=== PATIENT | male | born 1970 | race Caucasian/White ===

== ENCOUNTER 2019-01-17 05:18 | Emergency (ER) | payer BC, OTHER ==
[~2019-01-17] VITALS: Ht 167.6 cm; Wt 78.6 kg
[~2019-01-17 05:18] MED LIST: ASPI81TA83; DEPA500T2; FLAX OIL; PLAV75TA2; [UNRECOGNIZED DRUG - OTHER]
[2019-01-17] MEDS ORDERED: ACETAMINOPHEN 500 MG TAB PO ONE (06:30)
[2019-01-17] MEDS ORDERED: CYCLOBENZAPRINE 10 MG TAB PO ONE (06:30)
[2019-01-17] MEDS ORDERED: KETOROLAC 60 MG/2 ML VIAL (J1885) IM ONE (06:30)
--- NOTE | 2019-01-17 07:32 | REP ---
Clinical: Left-sided sciatica. Technique: AP, lateral, bilateral oblique and coned-down views of the lumbosacral spine. Findings: Alignment and lordosis maintained. No acute fracture / compression injury or subluxation. No significant degenerative changes are appreciated. Disc spaces are maintained. Impression: Age-appropriate lumbosacral spine radiographs. Electronically Signed by Prashanth Bethea MD 01/17/2019 07:24 A
[2019-01-17] MEDS ORDERED: predniSONE 20 MG TAB PO ONE (07:45)
[2019-01-17] MEDS ORDERED: ALBUTEROL 90 MCG/ACT 8GM HFA INHALER INH ONE (07:45)
[2019-01-17] MEDS ORDERED: CETIRIZINE (ZyrTEC) 10 MG TAB PO ONE (07:45)
[2019-01-17] MEDS ORDERED: CYCL10TA PO (07:56)
[2019-01-17] MEDS ORDERED: KETO10TAB PO (07:56)
[2019-01-17 08:14] VITALS: BP 136/66
[2019-01-17] MEDS ORDERED: FLUTICASONE PROP 0.05% NASAL SPRAY 16 GM (FLONASE) NARES SCH (09:00)
== END 2019-01-17 08:15 | disposition home or self-care (01) ==
LOC: M ED 05:18
DX: M54.32 Sciatica, left side (principal); M62.830 Muscle spasm of back; Z79.899 Other long term (current) drug therapy
CPT/HCPCS: 72110; 96372; 99283; J1885

== ENCOUNTER → 2020-01-18 | Outpatient (CLI) | payer BC ==
[~2020-01-18] MED LIST changes: +CYCL-707 PO; +KETO10TAB PO
== END ==
LOC: M LABSMTC 08:13
PROVIDERS: ATTEND Anesthesiology
DX: Z01.812 Encounter for preprocedural laboratory examination (principal); Z20.828 Contact with and (suspected) exposure to other viral communicable diseases
CPT/HCPCS: C9803; U0003

== ENCOUNTER 2020-01-23 08:56 | Day surgery (SDC) | payer BC ==
[~2020-01-23] VITALS: Ht 167.6 cm; Wt 79.8 kg
[~2020-01-23 08:56] MED LIST changes: +NS 1,000 ML IV ONE
--- NOTE | 2020-01-23 11:41 | ROOR ---
Patient Name: Haseeb Rand Procedure Date: 01/23/2020 11:19 AM Date of : 1970 Age: 49 Room: [facility] Gender: Male Note Status: Finalized Procedure: Colonoscopy Indications: Colon cancer screening in patient at increased risk: Family history of colorectal cancer in multiple 2nd degree relatives Providers: Ck GÓMEZ MD Referring MD: OSIEL KOHLER MD Requesting Provider: Medicines: Monitored Anesthesia Care Complications: No immediate complications. Procedure: Pre-Anesthesia Assessment: - The heart rate, respiratory rate, oxygen saturations, blood pressure, adequacy of pulmonary ventilation, and response to care were monitored throughout the procedure. The Colonoscope was introduced through the anus and advanced to the cecum, identified by appendiceal orifice and ileocecal valve. The colonoscopy was performed without difficulty. The patient tolerated the procedure well. The quality of the bowel preparation was adequate. Findings: The perianal and digital rectal examinations were normal. A 5 mm polyp was found in the cecum. The polyp was sessile. The polyp was removed with a cold snare. Resection and retrieval were complete. Small Internal Hemorrhoids. The exam was otherwise without abnormality on direct and retroflexion views. Impression: - One 5 mm polyp in the cecum, removed with a cold snare. Resected and retrieved. - Small Internal Hemorrhoids. - The examination was otherwise normal on direct and retroflexion views. Recommendation: - Repeat colonoscopy in 3 - 5 years for surveillance. - Await pathology results. - Telephone endoscopist for pathology results in 2 weeks. Ck Gómez MD Ck GÓMEZ MD 01/23/2020 11:40:47 AM Electronically signed by Ck GÓMEZ MD Number of Addenda: 0 Note Initiated On: 01/23/2020 11:19 AM Estimated Blood Loss: Estimated blood loss: none.
[2020-01-23] MEDS ORDERED: LIDOCAINE 2% 100MG/5ML SDV (FOR ANES.) As Ordered ONE (11:47)
[2020-01-23] MEDS ORDERED: propofoL 200 MG/20 ML VIAL As Ordered ONE (11:47)
[2020-01-23 11:54] VITALS: BP 128/85
== END 2020-01-23 11:55 | disposition home or self-care (01) ==
LOC: M OPP 08:56
PROVIDERS: ATTEND Internal Medicine Gastroenterology
DX: Z12.11 Encounter for screening for malignant neoplasm of colon (principal); Z80.0 Family history of malignant neoplasm of digestive organs; K63.5 Polyp of colon; K64.8 Other hemorrhoids; Z87.891 Personal history of nicotine dependence; Z86.73 Personal history of transient ischemic attack (TIA), and cerebral infarction without residual deficits; Z80.3 Family history of malignant neoplasm of breast; Z80.41 Family history of malignant neoplasm of ovary

== ENCOUNTER 2020-12-14 17:04 | Observation (INO) | payer BC ==
[~2020-12-14] VITALS: Ht 167.6 cm; Wt 83.6 kg
[~2020-12-14 17:04] MED LIST changes: -NS 1,000 ML IV ONE
[2020-12-14] MEDS ORDERED: AMOX875T2 (17:29)
[2020-12-14] MEDS ORDERED: ISOVUE-370 76% 100ML VIAL As Ordered ONE (17:41)
[2020-12-14 17:46] LABS: BASO # 0.1 10^3/uL (0.0-0.2); BASO % 0.8 % (0.0-1.0); EOS # 0.1 10^3/uL (0.0-0.5); EOS % 0.8 % (0.0-3.0); HEMATOCRIT 42.4 % (42.0-52.0); HEMOGLOBIN 14.7 g/dl (13.5-17.5); LYMPH # 1.9 10^3/uL (1.5-5.0); LYMPH % 31.7 % (24.0-44.0); MEAN CORPUSCULAR HEMOGLOBIN 31.6 pg (27.0-33.0); MEAN CORPUSCULAR HGB CONC 34.7 g/dl (32.0-36.5); MEAN CORPUSCULAR VOLUME 91.2 fl (80.0-96.0); MONO # 0.7 10^3/uL (0.0-0.8); MONO % 12.1 % (2.0-8.0); NEUTROPHILS # 3.2 10^3/uL (1.5-8.5); NEUTROPHILS % 54.4 % (36.0-66.0); PLATELET COUNT, AUTOMATED 232 10^3/uL (150-450); RED BLOOD COUNT 4.65 10^6/uL (4.30-6.10); WHITE BLOOD COUNT 5.9 10^3/uL (4.0-10.0)
[2020-12-14 18:06] LABS: BLOOD UREA NITROGEN 17 MG/DL (7-18); CALCIUM LEVEL 8.7 MG/DL (8.5-10.1); CARBON DIOXIDE LEVEL 26 MEQ/L (21-32); CHLORIDE LEVEL 107 MEQ/L (98-107); CK-MB VALUE MASS 2.4 NG/ML (<3.6); CPK CREATINE PHOSPHOKINASE 173 U/L (39-308); CREATININE FOR GFR 0.95 MG/DL (0.70-1.30); GLOMERULAR FILTRATION RATE > 60.0 (>56); GLUCOSE, FASTING 110 MG/DL (70-100); MB/CK RELATIVE INDEX 1.39 (< OR =4); POTASSIUM SERUM 4.1 MEQ/L (3.5-5.1); SODIUM LEVEL 139 MEQ/L (136-145); TROPONIN I < 0.02 NG/ML (< 0.10)
--- NOTE | 2020-12-14 18:24 | REP ---
INDICATION: CVA. COMPARISON: None. FINDINGS: The technique utilized in obtaining the radiograph has magnified the cardiac silhouette and accentuated the interstitial markings. The superior mediastinal structures are midline. The cardiac silhouette is unremarkable in size, shape, and position. The diaphragmatic surfaces of the lungs are regular, and the costophrenic angles are clear. The pulmonary marshall are clear. The imaged osseous structures are intact. IMPRESSION: There is no acute cardiopulmonary disease. <Electronically signed by Ryan Gardiner > 12/14/20 1612
--- NOTE | 2020-12-14 18:42 | REPVR ---
PROCEDURE INFORMATION: Exam: CT Angiography Head With Contrast, Arteriography Exam date and time: 12/14/2020 5:49 PM Age: 50 years old Clinical indication: Numbness; Additional info: Left sided facial numbness TECHNIQUE: Imaging protocol: Computed tomography angiography of the head with contrast. Exam focused on the arteries. 3D rendering (Not supervised by radiologist): MIP and/or 3D reconstructed images were created by the technologist. Radiation optimization: All CT scans at this facility use at least one of these dose optimization techniques: automated exposure control; mA and/or kV adjustment per patient size (includes targeted exams where dose is matched to clinical indication); or iterative reconstruction. Contrast material: ISOVUE 370; Contrast volume: 75 ml; Contrast route: INTRAVENOUS (IV); COMPARISON: No relevant prior studies available. FINDINGS: ANTERIOR CIRCULATION: Right internal carotid artery: Unremarkable. Intracranial segment is patent with no significant stenosis. No aneurysm. Right middle cerebral artery: Unremarkable. No occlusion or significant stenosis. No aneurysm. Right anterior cerebral artery: Unremarkable. No occlusion or significant stenosis. No aneurysm. Left internal carotid artery: Unremarkable. Intracranial segment is patent with no significant stenosis. No aneurysm. Left middle cerebral artery: Unremarkable. No occlusion or significant stenosis. No aneurysm. Left anterior cerebral artery: Unremarkable. No occlusion or significant stenosis. No aneurysm. POSTERIOR CIRCULATION: Right vertebral artery: Unremarkable. No occlusion or significant stenosis. No aneurysm. Left vertebral artery: Unremarkable. No occlusion or significant stenosis. No aneurysm. Basilar artery: Unremarkable. No occlusion or significant stenosis. No aneurysm. Right posterior cerebral artery: Unremarkable. No occlusion or significant stenosis. No aneurysm. Left posterior cerebral artery: Unremarkable. No occlusion or significant stenosis. No aneurysm. Brain: No definite mass, mass effect, or midline shift. Cerebral ventricles: No ventriculomegaly. Bones/joints: Unremarkable. No acute fracture. Soft tissues: Unremarkable. IMPRESSION: No hemodynamically significant stenosis or large vessel occlusion. Electronically signed by: Gilbert Skaggs On 12/14/2020 18:42:04 PM
--- NOTE | 2020-12-14 18:42 | REPVR ---
PROCEDURE INFORMATION: Exam: CT Head Without Contrast Exam date and time: 12/14/2020 5:49 PM Age: 50 years old Clinical indication: Other: CVA; Additional info: CVA - nursing interventions must not delay CT TECHNIQUE: Imaging protocol: Computed tomography of the head without contrast. Radiation optimization: All CT scans at this facility use at least one of these dose optimization techniques: automated exposure control; mA and/or kV adjustment per patient size (includes targeted exams where dose is matched to clinical indication); or iterative reconstruction. COMPARISON: No relevant prior studies available. FINDINGS: Brain: Normal. No hemorrhage. Unremarkable white matter. No mass effect. Cerebral ventricles: No ventriculomegaly. Paranasal sinuses: Visualized sinuses are unremarkable. No fluid levels. Mastoid air cells: Visualized mastoid air cells are well aerated. Bones/joints: Unremarkable. No acute fracture. Soft tissues: Unremarkable. IMPRESSION: No acute intracranial abnormality. Electronically signed by: Gilbert Skaggs On 12/14/2020 18:42:15 PM
[2020-12-14 18:43] LABS: INR 0.97; PROTHROMBIN TIME 13.3 SECONDS (12.7-14.5)
--- NOTE | 2020-12-14 18:43 | REPVR ---
PROCEDURE INFORMATION: Exam: CT Angiography Neck With Contrast Exam date and time: 12/14/2020 5:49 PM Age: 50 years old Clinical indication: Numbness; Additional info: Left sided facial numbness TECHNIQUE: Imaging protocol: Computed tomography angiography of the neck with contrast. 3D rendering (Not supervised by radiologist): MIP and/or 3D reconstructed images were created by the technologist. Radiation optimization: All CT scans at this facility use at least one of these dose optimization techniques: automated exposure control; mA and/or kV adjustment per patient size (includes targeted exams where dose is matched to clinical indication); or iterative reconstruction. Contrast material: ISOVUE 370; Contrast volume: 75 ml; Contrast route: INTRAVENOUS (IV); COMPARISON: No relevant prior studies available. FINDINGS: Right common carotid artery: No stenosis. No dissection or occlusion. Right internal carotid artery: Minimal calcification at the proximal right cervical ICA without stenosis. Right external carotid artery: No occlusion or stenosis of the origin. Left common carotid artery: No stenosis. No dissection or occlusion. Left internal carotid artery: No stenosis of the extracranial segment. No dissection or occlusion. Left external carotid artery: No occlusion or stenosis of the origin. Right vertebral artery: No stenosis. No dissection or occlusion. Left vertebral artery: Moderate stenosis at the origin of the left vertebral artery. Soft tissues: Normal. No significant soft tissue swelling. Bones/joints: No acute fracture. IMPRESSION: 1. Moderate stenosis involving the origin of the left vertebral artery. 2. No significant stenosis involving either internal carotid artery. REFERENCES: NASCET CRITERIA. The degree of internal carotid artery stenosis is based on NASCET criteria. Normal is no stenosis. Mild is less than 50% stenosis. Moderate is 50-69% stenosis. Severe is 70% to 99% stenosis. Total occlusion is no detectable patent lumen. Electronically signed by: Gilbert Skaggs On 12/14/2020 18:42:29 PM
[2020-12-14 18:44] LABS: PARTIAL THROMBOPLASTIN TIME 27.1 SECONDS (25.9-37.0)
[2020-12-14] MEDS ORDERED: hydrALAZINE 20MG/ML 1ML VIAL (J0360 PER 20MG) IV ONE (19:10)
[2020-12-14] MEDS ORDERED: ASPIRIN 325 MG TAB PO ONE (19:10)
[2020-12-14 19:33] VITALS: BP 165/103
[2020-12-14] MEDS ORDERED: MOM 30ML SUSPENSION UDC PO PRN (19:35)
[2020-12-14] MEDS ORDERED: ACETAMINOPHEN TAB 650MG DOSE (2X325MG) PO PRN (19:35)
[2020-12-14] MEDS ORDERED: MAALOX 30 ML SUSP *UDC PO PRN (19:35)
[2020-12-14] MEDS ORDERED: **hydrALAZINE HCL** 25 MG TAB PO PRN (19:35)
--- NOTE | 2020-12-14 19:45 | HPEPDOC ---
[facility] Medical History & Physical Date of Admission Dec 14, 2020 Date of Service: Dec 14, 2020 Primary Care Physician: Archie Puri MD Attending Physician: ESTHER PATINO MD History and Physical TIME OF SERVICE:820pm CHIEF COMPLAINT: dizziness HISTORY OF PRESENT ILLNESS: is a 50 yr old who presented w c/o headaches for 3 days that are atypical of his chronic migraines. Today at about 3:50PM he had 2 dizzy spells back to back along with left lower facial numbness and left tongue numbness. He denies having a history of HTN but he decided to check his BP was surprised that it was 158/88 when it is usually about 120/86. He was concerned about this constellation of symptoms so he decided to come to the ER for evaluation. He denied having blurry vision, n/v falling or dropping any objects. Per Roland Castro the NIH stroke score was 0. The patients acute elevation in blood pressure (198/121) was managed with Lisinopril and Hydralazine BP; he discussed the case with who will see the patient in the morning. REVIEW OF SYSTEMS: 10-point review of systems negative except as listed in HPI PAST MEDICAL/ SURGICAL HISTORY: Chronic Migraines, TIA s/p PFO repair at [facility], Knee surgery, Lasik surgery SOCIAL HISTORY: He doesnt smoke, he drinks alcohol occasionally and doesnt use recreational drugs. FAMILY HISTORY: Cancer on the maternal side of his family. Parkinsons, CAD/[place] on the paternal side of his family. ALLERGIES: Please see below. HOME MEDICATIONS: Please see below. PHYSICAL EXAMINATION: Vital Signs Date Time Temp Pulse Resp B/P (MAP) Pulse Ox O2 Delivery O2 Flow Rate FiO2 12/14/20 17:04 98.3 51 20 175/103 (127) 96 Room Air GENERAL APPEARANCE: well-nourished and developed HEENT: EOMI / no scleral icterus or conjunctival injection CARDIOVASCULAR: RRR/NMRG LUNGS: CTAB on RA MUSCULOSKELETAL: NCAT / EDIE x 4 INTEGUMENT: slightly flushed NEUROLOGICAL: CN 2-12 intact, tongue & uvula are midline, face symmetrical, he has decreased sensation at the left lower face otherwise no asymmetry with regards to sensation on the rest of his face, his arms or legs /strength 5/5 PSYCHIATRIC: A&O x3 /able to understand and follow all commands LABORATORY DATA: IMAGING: Chest xray IMPRESSION: There is no acute cardiopulmonary disease. CT head IMPRESSION: No acute intracranial abnormality. CTA head IMPRESSION: No hemodynamically significant stenosis or large vessel occlusion. CTA neck IMPRESSION: 1. Moderate stenosis involving the origin of the left vertebral artery. 2. No significant stenosis involving either internal carotid artery. REFERENCES: NASCET CRITERIA. The degree of internal carotid artery stenosis is based on NASCET criteria. Normal is no stenosis. Mild is less than 50% stenosis. Moderate is 50-69% stenosis. Severe is 70% to 99% stenosis. Total occlusion is no detectable patent lumen. MICROBIOLOGY: respiratory panel is neg ASSESSMENT: is a 50 yr old w a hx of PFO closure after TIA & migranes who presented w c/o atypical ACEVEDO, dizziness, and paresthesias suspicious for TIA/CVA. PLAN: 1 Possible TIA vs CVA TIA Prognosis: Risk of Stroke by 90 Days After Presentation to determine risk of CVA within 90-day risk of TIA presentation is 2 = 7% estimated risk of stroke 90 days after presentation ABCD2 Score for risk of CVA after TIA IS 3 which is low risk. He is not likely a candidate for ASA & Plavix combo (based on the results of the PO[facility] trails) but the day time team can confirm this with in the morning Plan: admit to Medical floor under observation status (Hospital admission is recommended for all patients with TIAs and ABCD2 Scores of 3 or greater to to expedite diagnostic testing and stroke subtyping) / telemetry / f/u MRI of brain pending discussion w the Radiology department about his PFO closure (I lef t a copy of the card in his chart) / f/u Echo w bubble study / f/u lipid panel and A1C / ASA 325 mg (LA or PO) / permissive HTN for the next 24 H w with target blood pressure less than 220/120 with PRN hydralazine / the patient can f/u w PCP to discuss lifestyle management: diet (ie high in fruits, vegies and fiber and < 2G salt) , weight control strategies (aim for BMI between 18.5 to 25) 2 HTN Crisis Possible cause of his ACEVEDO Plan: bed rest for tonight/ hydralazine PRN / the day time team can start a diuretic, CCB, ACEI or ARB (which are all aceptable first line meds for HTN per based on the results of the ALLHAT trail) in the morning / low salt diet 3 Moderate Left Vertebral Artery Stenosis Plan: the day time team can f/u w to discuss whether we should consult (Vascular) 4 Chronic Bradycardia Plan: telemetry 5 Dog bite Plan: c/w Augmentin DVT px w Lovenox Dispo: home after less than 2 midnights stay Home Medications Scheduled Amoxicillin/Potassium Clav (Augmentin 875-125 Tablet) 1 Each Tablet, 875 MG PO BID Krill Oil (Krill Oil) 500 Mg Capsule, 500 MG PO DAILY Magnesium Oxide (Magnesium Oxide) 250 Mg Tablet, 250 MG PO DAILY Multivitamins (Thera M Plus Tablet) 1 Each Tablet, 1 TAB PO DAILY Vits A,C,E/Lutein/Minerals (Ocuvite with Lutein Tablet) 1 Each Tablet, 1 TAB PO DAILY Allergies Coded Allergies: No Known Allergies (Unverified , 01/17/19) A-FIB/CHADSVASC A-FIB History Current/History of A-Fib/PAF?: No Current PO Anticoag Therapy: No ESTHER PATINO MD Dec 14, 2020 19:45
[2020-12-14] MEDS ORDERED: PILL CUTTER 1 EACH XX PRN (19:55)
[2020-12-14] MEDS ORDERED: OCUVTAB PO (20:50)
[2020-12-14] MEDS ORDERED: HOME MED LIST COMPLETE! XX SCH (20:50)
[2020-12-14] MEDS ORDERED: AUGM875T28 PO (20:50)
[2020-12-14] MEDS ORDERED: VITMTA PO (20:50)
[2020-12-14] MEDS ORDERED: RA K500C PO (20:50)
[2020-12-14] MEDS ORDERED: MAGN250T11 PO (20:50)
[2020-12-14 21:11] LABS: RSV AMPLIFICATION NEGATIVE (NEGATIVE)
[2020-12-14 22:00] VITALS: BP 130/84
[2020-12-14 22:46] LABS: HEMOGLOBIN A1c 5.1 %
[2020-12-14] MEDS: AUGMENTIN 875 MG TAB PO SCH (22:58)
[2020-12-14 23:01] LABS: CHOLESTEROL LEVEL 233 MG/DL (<200); CHOLESTEROL RISK RATIO 4.314 (<5); HDL CHOLESTEROL 54 MG/DL (>40); LDL CHOLESTEROL 149 MG/DL (<100); NON-HDL-C 179 MG/DL; TRIGLYCERIDES LEVEL 152 MG/DL (<150); TROPONIN I < 0.02 NG/ML (< 0.10)
[2020-12-15] VITALS: BP 130/84
[2020-12-15 04:00] VITALS: BP 98/57
[2020-12-15] MEDS ORDERED: NS 1,000 ML IV SCH (04:40)
[2020-12-15 05:29] LABS: HEMATOCRIT 41.7 % (42.0-52.0); HEMOGLOBIN 14.4 g/dl (13.5-17.5); MEAN CORPUSCULAR HEMOGLOBIN 31.6 pg (27.0-33.0); MEAN CORPUSCULAR HGB CONC 34.5 g/dl (32.0-36.5); MEAN CORPUSCULAR VOLUME 91.6 fl (80.0-96.0); PLATELET COUNT, AUTOMATED 215 10^3/uL (150-450); RED BLOOD COUNT 4.55 10^6/uL (4.30-6.10); WHITE BLOOD COUNT 5.1 10^3/uL (4.0-10.0)
[2020-12-15 06:03] LABS: BLOOD UREA NITROGEN 14 MG/DL (7-18); CALCIUM LEVEL 8.4 MG/DL (8.5-10.1); CARBON DIOXIDE LEVEL 27 MEQ/L (21-32); CHLORIDE LEVEL 108 MEQ/L (98-107); CHOLESTEROL LEVEL 215 MG/DL (<200); CHOLESTEROL RISK RATIO 4.777 (<5); CREATININE FOR GFR 0.91 MG/DL (0.70-1.30); GLOMERULAR FILTRATION RATE > 60.0 (>56); GLUCOSE, FASTING 101 MG/DL (70-100); HDL CHOLESTEROL 45 MG/DL (>40); LDL CHOLESTEROL 133 MG/DL (<100); NON-HDL-C 170 MG/DL; SODIUM LEVEL 140 MEQ/L (136-145); TRIGLYCERIDES LEVEL 184 MG/DL (<150)
[2020-12-15 08:12] VITALS: BP 107/70
[2020-12-15] MEDS: OCUVITE 1 TAB PO SCH (08:13)
[2020-12-15] MEDS: ENOXAPARIN 40MG/0.4ML SYRINGE (J1650 PER 10MG) SC SCH (08:13)
[2020-12-15] MEDS: AUGMENTIN 875 MG TAB PO SCH ×2 (08:14→20:20)
[2020-12-15] MEDS: ASPIRIN 81 MG CHEW TABLET PO SCH (08:14)
[2020-12-15] MEDS ORDERED: CHLORTHALIDONE 12.5MG PER 1/2 TABLET PO SCH (09:00)
--- NOTE | 2020-12-15 09:36 | IPNPDOC ---
Text Note Date of Service The patient was seen on 12/15/20. Subjective: 50 year old male presented to the ER with 3 day headache and facial numbness was determined to have hypertensive urgency and possible TIA. On exam today patient was supine and appeared in no distress. Patient says that his headache was a 2/10 today, yesterday when he came in it was a 4/10. Patient says that he feels fine right now. Review of systems: headache is 2/10 - patient suffers from chronic migraines, Denies N/V, chest pain, palpitations, SOB, dyspnea, ABD pain, urinary pain, tin gling, and numbness. Physical exam: General: No distress, no fever or chills Psych: Pt is alert and oriented *3 HEENT: No visible thyroid or lymph node enlargement Heart: Heart rate is slow. Lungs: BL equal breath sounds on auscultation ABD: No tenderness or rigidity to palpation. Bowel sounds are present and high frequency on auscultation Extremities: No edema BL. Pedal and posterior tibial pulses 2/4 BL. Assessment: 50 year old male with past medical history of chronic migraines, previous TIA in 2008 (PFO correction), knee surgery, and Lasix surgery. Patient came to the hospital with headaches that lasted 3 days and numbness of the face. Patient was found to be hypertensive with the highest value recorded as 198/121. Patient's presenting symptoms were concerning for a TIA. Patient was found with elevated lipid panels on labs. Goals of current medical admission are to determine future stroke risk and start patient on management for chronic hypertension. New Imaging: - Echocardiogram: Results pending - MRI: Results pending Plan: 1. TIA/ CVE risk reduction - Patient symptoms on admission were headache that was not consistent with usual migraine pain and numbness on the left side of the face consistent with trigeminal nerve distribution. - ABCD2 scoring is inconclusive because TIA vs. other cause cannot be determined - Pt will be started on 81 mg of aspirin daily. - Patient has elevated lipids - TG (184), Cholesterol (215), and LDL (133) - psychologist counseling patient on diet and start patient on Avastatin therapy (40mg) - ASCVD risk score. 2. Hypertensive crisis -Patient was admitted he had a BP of 198/121. Patient does not take any Medications for his BP regularly. - During hospital stay Patient's BP has been well controlled - 130/80s - hypotensive overnight. Currently treated with Hydralazine Q6 PO. - Will start the patient on amlodipine for management of hypertension. 3. Left artery stenosis - On CTA of the neck moderate stenosis of the Left vertebral artery was found. No current indication to treat. 4. Dog bite last Sunday (12/10/20) - prescribed Augmentin for prophylatic treatment - patient should continue med for 10 day period that it was prescribed. 5. DVT prophylaxis - Lovenox. VS,Fishbone, I+O VS, Fishbone, I+O Laboratory Tests 12/14/20 17:32 12/15/20 05:09 Vital Signs Date Time Temp Pulse Resp B/P (MAP) Pulse Ox O2 Delivery O2 Flow Rate FiO2 12/15/20 04:00 97.8 57 16 98/57 (71) 97 Room Air I&O- Last 24 Hours up to 6 AM 12/15/20 05:59 Intake Total 0 ml Output Total 550 ml Balance -550 ml SANDRA PALMER S-3 Dec 15, 2020 09:36
--- NOTE | 2020-12-15 10:00 | ECGEPIP ---
[facility] - ED Test Date: 2020-12-14 Pat Name: KEYANA ARTEAGA Department: Room: - Gender: Male [employer]: LORI : 1970 Requested By: Titus Cleary Order Number: [id number] Reading MD: Elba Walker Measurements Intervals [place] Rate: 51 P: 18 WA: 176 QRS: -24 QRSD: 102 T: 4 QT: 414 QTc: 381 Interpretive Statements Sinus bradycardia Minimal voltage criteria for LVH, may be normal variant ( R in aVL ) No prior Electronically Signed on 12-15-2020 10:00:38 EDT by Elba Walker
[2020-12-15 12:00] VITALS: BP 123/59
[2020-12-15] MEDS: ATORVASTATIN 20 MG TAB PO SCH (12:18)
[2020-12-15] MEDS ORDERED: SLF 3 ML SYR IV PRN (13:40)
[2020-12-15] MEDS: SLF 3 ML SYR IV SCH ×2 (14:59→20:20)
[2020-12-15 16:00] VITALS: BP 136/92
[2020-12-15 20:00] VITALS: BP 113/70
--- NOTE | 2020-12-15 21:11 | REPVR ---
PROCEDURE INFORMATION: Exam: MR Head Without Contrast Exam date and time: 12/15/2020 8:41 PM Age: 50 years old Clinical indication: Dizziness; Additional info: Dizziness, ACEVEDO, facial paresthesia w HX of TIA TECHNIQUE: Imaging protocol: MR of the head without contrast. COMPARISON: CT Head without contrast 12/14/2020 5:44 PM FINDINGS: No abnormal restriction of diffusion to indicate acute CVA. Midline structures and cerebellar tonsillar position appear normal. Ventricles, cisterns and sulci are symmetric and normal for age. No intracranial mass, midline shift or abnormal extra-axial fluid. No acute intracranial hemorrhage or hemosiderin deposition. No abnormal white matter signal on FLAIR and T2 sequences. Optic chiasm and pituitary infundibulum appear normal. Normal vascular flow voids in major intracranial arteries and dural venous sinuses. Paranasal sinuses are normally aerated. Mastoid air cells are normally aerated. Optic globes and orbits are unremarkable. IMPRESSION: Unremarkable noncontrast MRI of the brain. Electronically signed by: Alexander Morocho On 12/15/2020 21:11:29 PM
[2020-12-16] VITALS: BP 114/60
[2020-12-16 04:00] VITALS: BP 102/56
[2020-12-16] MEDS: SLF 3 ML SYR IV SCH (06:05)
[2020-12-16 07:23] VITALS: BP 113/69
--- NOTE | 2020-12-16 07:58 | DS.PDOC ---
Discharge Summary General Date of Admission Dec 14, 2020 at 17:05 Date of Discharge 12/16/20 Discharge Summary PROCEDURES PERFORMED DURING STAY: [None]. ADMITTING DIAGNOSES: 1. TIA/ CVE. 2. Hypertensive urgency. 3. Hyperlipidemia 4. Dog bite. 5. Previeous TIA - PFO closure. 6. Chronic migraines DISCHARGE DIAGNOSES: 1. Possible TIA/ CVE. 2. Hypertensive urgency - resolved 3. Hyperlipidemia. 4. Dog bite. 5. Previous TIA - PFO closure. 6. Chronic migraines COMPLICATIONS/CHIEF COMPLAINT: Hypertensive Urgency,TIA (Transient Ischemic Attack). HISTORY OF PRESENT ILLNESS: Patient presented to the ER with 3 day headache and left sided facial numbness. BP in the ER was found to be 190+/120+. HOSPITAL COURSE: Patient was admitted to the hospital for headache that lasted 3 days and had associated facial numbness concerning for a TIA. Patients BP was elevated on admission to 190+/120+. Patient's BP was treated with Hydralazine every 6 hours and eventually normalized. Patient's blood pressure yesterday was low enough that he no longer needed any BP meds to be at a normal range. Patient was worked up for a possible TIA. No concerning findings in EKG or echo. Patient's CTA of the head and neck was normal except some moderate left vertebral artery stenosis. Patient's labs indicate that he has slight h yperlipidemia. Brain MRI and non contrast CT was negative for ischemic or hemorrhagic findings. Coagulation study were within normal limits. Patient will be prescribed aspirin on discharge and instructed to measure his BP every morning at home and see his PCP within 7 days of discharge. DISCHARGE MEDICATIONS: Please see below. ALLERGIES: Please see below. PHYSICAL EXAMINATION ON DISCHARGE: VITAL SIGNS: Please see below. GENERAL: No fever or chills HEENT: Patient has no visible thyroid or lymph node enlargement NECK: No nuchal rigidity CARDIOVASCULAR EXAMINATION: Normal S1 and S2 with slow rate. No extra heart sounds or mumurs. RESPIRATORY EXAMINATION: Patient has clear and equal lung sounds BL ABDOMINAL EXAMINATION: No tenderness to palpation EXTREMITIES: No edema of the legs and 2/4 pedal and posterior tibial pulses BL SKIN: Warm and flushed. NEUROLOGICAL EXAMINATION: No weakness with ambulation. PSYCHIATRIC EXAMINATION: Alert and oriented*3 LABORATORY DATA: Please see below. New IMAGING: Brain MRI ECHO: PROGNOSIS: Good ACTIVITY: No restrictions. DIET: avoid fatty foods to control elevated lipids DISCHARGE PLAN: 1. Patient should continue on 40mg statin that was prescribed in the hospital. 2. Patient should be continue 81mg aspirin that was prescribed in hospital. DISPOSITION: good. DISCHARGE INSTRUCTIONS: 1. Patient should continue on 40mg statin that was prescribed in the hospital. 2. Patient should be continue 81mg aspirin that was prescribed in hospital. ITEMS TO FOLLOWUP ON ON OUTPATIENT: 1. Visit PCP within 7 days of discharge. DISCHARGE CONDITION: Stable. TIME SPENT ON DISCHARGE: 45 minutes. Vital Signs/I&Os Vital Signs Date Time Temp Pulse Resp B/P (MAP) Pulse Ox O2 Delivery O2 Flow Rate FiO2 12/16/20 07:23 97.7 52 18 113/69 (84) 97 Room Air I&O- Last 24 Hours up to 6 AM 12/16/20 06:00 Intake Total 1560 ml Output Total 2325 ml Balance -765 ml Discharge Medications Scheduled Amoxicillin/Potassium Clav (Augmentin 875-125 Tablet) 1 Each Tablet, 875 MG PO BID, (Reported) Aspirin (Children's Aspirin) 81 Mg Tab.chew, 81 MG PO DAILY Atorvastatin Calcium (Atorvastatin Calcium) 40 Mg Tablet, 1 TAB PO DAILY Krill Oil (Krill Oil) 500 Mg Capsule, 500 MG PO DAILY, (Reported) Magnesium Oxide (Magnesium Oxide) 250 Mg Tablet, 250 MG PO DAILY, (Reported) Multivitamins (Thera M Plus Tablet) 1 Each Tablet, 1 TAB PO DAILY, (Reported) Vits A,C,E/Lutein/Minerals (Ocuvite with Lutein Tablet) 1 Each Tablet, 1 TAB PO DAILY, (Reported) Allergies Coded Allergies: No Known Allergies (Unverified , 01/17/19) SANDRA PALMER S-3 Dec 16, 2020 07:58
[2020-12-16] MEDS ORDERED: ATOR40TA75 PO (08:39)
[2020-12-16] MEDS ORDERED: ASPI81CH8 PO (08:39)
[2020-12-16] MEDS: ENOXAPARIN 40MG/0.4ML SYRINGE (J1650 PER 10MG) SC SCH (09:00)
[2020-12-16] MEDS: ASPIRIN 81 MG CHEW TABLET PO SCH (09:25)
[2020-12-16] MEDS: AUGMENTIN 875 MG TAB PO SCH (09:25)
[2020-12-16] MEDS: ATORVASTATIN 20 MG TAB PO SCH (09:25)
[2020-12-16] MEDS: OCUVITE 1 TAB PO SCH (09:25)
--- NOTE | 2020-12-16 13:32 | CR ---
CONSULTATION DATE: 12/15/2020 REFERRING PHYSICIAN: Priyanka Otero MD REASON FOR CONSULTATION: Dizziness and left-sided facial numbness. HISTORY OF PRESENT ILLNESS: Haseeb Rand is a 50-year-old man with a history of chronic migraines. He had headaches for four days. Around 3:50 p.m. on the admission, he had two brief dizzy spells back to back, which lasted for 2 or 3 seconds and it was an interval of a couple seconds in between. He describes the dizzy spells as euphoria that went through his body. He also felt numbness of the left lower face and left side of mouth and tongue. His euphoria type dizziness lasted for a couple of seconds as described above. The left side of his mouth still feels numb and tingling. He says that he had transient ischemic attack (TIA) in 2008 when he was found to have PFO, which was repaired at [facility] in [place], [place] in 2008. At that time, he had collapsed. He also felt at that time that he lost the left side of his face completely. He has chronic headache, which occur several times a week lasting half to one day. Sometimes it can last for four days like this past time and these are pressure and throbbing in character, 7 or 8 out of 10 in intensity. Headaches are associated with photophobia. In the emergency department, his ELEUTERIO stroke scale was 0. In the emergency department, his blood pressure was 198/121. It was improved by hydralazine, lisinopril and he was also given chlorthalidone. He denies any dysphagia, dysarthria, diplopia or urinary incontinence, falls or loss of consciousness. PAST MEDICAL HISTORY: Chronic migraines, transient ischemic attack (TIA) and patent foramen ovale (PFO) closure in 2008. SURGICAL HISTORY: Knee surgery, LASIK eye surgery. \SOCIAL HISTORY: He denies smoking or illicit drugs. He drinks alcohol occasionally. He did have several alcoholic beverages over the weekend to do a alliance party. FAMILY HISTORY: History of cancer. Also has a history of Parkinsonism and cardiac disease. REVIEW OF SYSTEMS: All systems reviewed and found to be noncontributory, except as mentioned in his present illness. ALLERGIES: None. HOME MEDICATIONS: CRAN oil, magnesium, Augmentin, multivitamins, vitamin A, C, E. PHYSICAL EXAMINATION: Temperature 98.2, pulse 58, respiratory rate 20, blood pressure 136/92, 97% saturations on room air. Heart: Regular rate and rhythm. Lungs: Clear to auscultation. Abdomen: Soft, nontender, non-distended. No pedal edema. No musculoskeletal abnormalities. No rash. No signs of meningeal irritation. The patient is awake, alert, oriented to place, person and time. Normal speech, comprehension and repetition. Extraocular muscles are intact. No facial weakness. Tongue and uvula midline. 5/5 strength in all four extremities. Deep tendon reflexes 2+ throughout. Normal sensation throughout. Gait is normal. He is able to do tandem walking. There is no nystagmus, dysmetria, tremor. DIAGNOSTIC STUDIES: CT scan of head: Unremarkable. CT angiogram of her neck showed moderate left vertebral artery atherosclerosis. Total cholesterol was 215, triglycerides were 184, LDL was 133. TSH was 3.7. ASSESSMENT: 1. Episode of dizziness and left-sided facial tingling, that was concerning for transient ischemic attack (TIA) and hypertensive urgency. 2. History of transient ischemic attack (TIA) and patent foramen ovale (PFO) closure in 2008. PLAN: 1. Aspirin 81 mg by mouth daily 2. Lipitor 20 mg by mouth daily 3. He should keep a diary of his blood pressure and pulse at home. He received three different medications in the emergency department and this morning which has improved his blood pressure during his hospital stay. 4. Follow up with our office in one 1 2 weeks after hospital discharge. He is currently waiting for his MRI scan of brain. Echocardiogram was performed and report is pending. Telemetry monitoring showed sinus rhythm so far.
--- NOTE | 2020-12-16 16:54 | ECHO ---
ECHOCARDIOGRAM DATE OF PROCEDURE: 12/15/2020 REFERRING PHYSICIAN: ESTHER PATINO MD INDICATION: Transient cerebral ischemia, unspecified. Age: Gender: Height: 168 cm. Weight: 82 kg. MEASUREMENTS: 2D Measurements: Left atrium 3.8 cm Aortic root 3.4 cm Inferior septum 1.32 cm Posterior wall 0.92 cm Left ventricle diastole 4.7 cm Left atrial volume index 26 Inferior vena cava 2.0 cm Doppler Measurements: No aortic stenosis or regurgitation Aortic valve velocity 116 cm/s LVOT velocity 78.3 cm/s Trace mitral regurgitation Mitral E velocity 67.7 cm/s Mitral A velocity 39.8 cm/s Mitral deceleration time 224 msec Very mild tricuspid regurgitation Estimated right ventricular systolic pressure 26-31 mmHg Estimated right atrial pressure 5-10 mmHg No pulmonic regurgitation Pulmonary acceleration time 119 msec MITRAL ANNULAR TISSUE DOPPLER: E prime septal 9.6 cm/s, E prime lateral 11.6 cm/s DESCRIPTION: Rhythm was sinus bradycardia. Image quality was good. No pericardial effusion. This was a 2D, M-mode, color flow Doppler, and pulsed wave Doppler examination including mitral annular tissue Doppler. CONCLUSIONS: 1. Mild focal hypertrophy of the basal anterior ventricular septum. Normal left ventricle internal dimensions. Normal regional LV wall motion and wall thickness. Normal LV systolic function. LVF 61% (3-D). Normal LV diastolic function. 2. Very mild aortic valve sclerosis of a 3-cuspid aortic valve. No aortic regurgitation. 3. Saline bubble study was negative for detection of [id number] intracardiac shunting or intrapulmonary shunting; however, bubble opacification of the right atrium was fairly poor especially along the intraatrial septum and therefore, this study would not completely exclude the possibility of intraatrial shunting such at PFO or ASD. 4. Otherwise normal-appearing echocardiogram and Doppler findings.
== END 2020-12-16 11:38 | disposition home or self-care (01) ==
LOC: M ED 17:04 → M ED INP 17:05 → M PCU 22:05
PROVIDERS: ADMIT Internal Medicine; ATTEND Internal Medicine
DX: R42 Dizziness and giddiness (principal); R20.2 Paresthesia of skin; R51.9 Headache, unspecified; I16.0 Hypertensive urgency; Z86.73 Personal history of transient ischemic attack (TIA), and cerebral infarction without residual deficits; E78.5 Hyperlipidemia, unspecified; Z87.74 Personal history of (corrected) congenital malformations of heart and circulatory system; R29.700 NIHSS score 0; G43.709 Chronic migraine without aura, not intractable, without status migrainosus; I67.2 Cerebral atherosclerosis; W54.0XXA Bitten by dog, initial encounter; Y92.89 Other specified places as the place of occurrence of the external cause; Z79.899 Other long term (current) drug therapy; Z79.2 Long term (current) use of antibiotics; Z79.82 Long term (current) use of aspirin
CPT/HCPCS: 36415; 70450; 70496; 70498; 70551; 71045; 80047; 80048; 80061; 82550; 82553; 83036; 84443; 84484; 85025; 85027; 85610; 85730; 86850; 86900; 86901; 87631; 93005; 93041; 93306; 94760; 96372; 96374; 99285; J0360; J1650; Q9967

== ENCOUNTER → 2023-04-16 | Outpatient (CLI) | payer BC ==
[~2023-04-16] MED LIST changes: +AMOX875T2; +ASPI81CH8 PO; +ATOR40TA75 PO; +AUGM875T28 PO; +MAGN250T11 PO; +OCUVTAB PO; +RA K500C PO; +VITMTA PO
[2023-04-16 09:37] LABS: APPEARANCE, URINE CLEAR (CLEAR); BACTERIA, URINE AUTO NEGATIVE (NEGATIVE); BILIRUBIN, URINE AUTO NEGATIVE (NEGATIVE); BLOOD, URINE BLOOD NEGATIVE (NEGATIVE); COLOR, URINE YELLOW (YELLOW); GLUCOSE, URINE (UA) AUTO NEGATIVE (NEGATIVE); KETONE, URINE AUTO NEGATIVE (NEGATIVE); LEUKOCYTE ESTERASE, URINE AUTO NEGATIVE (NEGATIVE); MUCUS, URINE SMALL (NEGATIVE); NITRITE, URINE AUTO NEGATIVE (NEGATIVE); PROTEIN, URINE AUTO NEGATIVE (NEGATIVE); RBC, URINE AUTO 0 /HPF (0-3); SPECIFIC GRAVITY URINE AUTO 1.015 (1.002-1.035); SQUAMOUS EPITHELIAL CELL UR AU 0 /HPF (0-6); UROBILINOGEN, URINE AUTO 0.2 mg/dL (0.0-2.0); WBC, URINE AUTO 0 /HPF (0-3)
[2023-04-16 09:40] LABS: HEMATOCRIT 46.8 % (42.0-52.0); HEMOGLOBIN 16.1 g/dl (13.5-17.5); MEAN CORPUSCULAR HEMOGLOBIN 32.3 pg (27.0-33.0); MEAN CORPUSCULAR HGB CONC 34.4 g/dl (32.0-36.5); PLATELET COUNT, AUTOMATED 226 10^3/uL (150-450); RED BLOOD COUNT 4.98 10^6/uL (4.30-6.10); WHITE BLOOD COUNT 5.9 10^3/uL (4.0-10.0)
[2023-04-16 10:02] LABS: PROSTATIC SPECIFIC AG MONITOR 0.66 NG/ML (< 4.00)
[2023-04-16 10:04] LABS: ALBUMIN 4.2 G/DL (3.2-5.2); ALKALINE PHOSPHATASE 165 U/L (46-116); ALT/SGPT 44 U/L (7.0-40); AST/SGOT 23 U/L (<34); BILIRUBIN,TOTAL 0.5 MG/DL (0.3-1.2); BLOOD UREA NITROGEN 17 MG/DL (9-23); CALCIUM LEVEL 9.9 MG/DL (8.5-10.1); CARBON DIOXIDE LEVEL 27 MMOL/L (20-31); CHLORIDE LEVEL 107 MMOL/L (98-107); CHOLESTEROL LEVEL 249 MG/DL (<200); CREATININE FOR GFR 1.01 MG/DL (0.70-1.30); GLOMERULAR FILTRATION RATE > 60.0 (>56); GLUCOSE, FASTING 106 MG/DL (60-100); HDL CHOLESTEROL 60.7 MG/DL (>40); LDL CHOLESTEROL 160.7 MG/DL (<100); NON-HDL-C 188.3 MG/DL; POTASSIUM SERUM 4.5 MMOL/L (3.5-5.1); SODIUM LEVEL 141 MMOL/L (136-145); TOTAL PROTEIN 6.8 G/DL (5.7-8.2); TRIGLYCERIDES LEVEL 138 MG/DL (<150)
== END ==
LOC: M WUC 08:05
PROVIDERS: ATTEND Physician Assistant
DX: E78.5 Hyperlipidemia, unspecified (principal); Z86.73 Personal history of transient ischemic attack (TIA), and cerebral infarction without residual deficits; R35.1 Nocturia; Z12.5 Encounter for screening for malignant neoplasm of prostate

== ENCOUNTER → 2023-04-20 | Outpatient (CLI) | payer BC ==
[2023-04-20 17:44] LABS: MAGNESIUM LEVEL 2.4 MG/DL (1.8-2.4)
[2023-04-20 17:46] LABS: TOTAL 25(OH) VITAMIN D 31.2 NG/ML (20.0-100.0)
== END ==
LOC: M WUC 14:29
PROVIDERS: ATTEND Physician Assistant
DX: R74.8 Abnormal levels of other serum enzymes (principal); M62.838 Other muscle spasm

== ENCOUNTER → 2023-05-03 | Outpatient (CLI) | payer BC | LOC: M WHC 08:33 | PROVIDERS: ATTEND Physician Assistant | DX: D48.62 Neoplasm of uncertain behavior of left breast (principal) ==

== ENCOUNTER → 2023-06-26 | Outpatient (CLI) | payer BC, OTHER | LOC: M RAD 08:23 | PROVIDERS: ATTEND Internal Medicine Gastroenterology | DX: R74.8 Abnormal levels of other serum enzymes (principal) ==

== ENCOUNTER → 2023-07-26 | Outpatient (CLI) | payer BC ==
[2023-07-26 10:57] LABS: ALBUMIN 4.4 G/DL (3.2-5.2); ALKALINE PHOSPHATASE 146 U/L (46-116); ALT/SGPT 72 U/L (7.0-40); AST/SGOT 37 U/L (<34); BILIRUBIN,DIRECT 0.2 MG/DL (<0.4); BILIRUBIN,TOTAL 0.6 MG/DL (0.3-1.2); IRON (FE) 111 UG/DL (65-175); PERCENT SATURATION 35.8 % (19.7-50.0); TOTAL IRON BINDING CAPACITY 310 UG/DL (250-425); TOTAL PROTEIN 6.8 G/DL (5.7-8.2)
[2023-07-26 11:30] LABS: HEPATITIS B CORE ANTIBODY IGM NEGATIVE (NEGATIVE); HEPATITIS C VIRUS ABY INDEX < 0.02 INDEX (<0.8)
[2023-07-26 14:37] LABS: IMMUNOGLOBULIN A 109.2 MG/DL (40-350)
[2023-07-27 19:08] LABS: LIVER-KIDNEY MICROSOMAL ABY <20.1 Units (0.0-20.0); TISSUE TRANSGLUTAMINASE IgA <2 U/mL (0-3)
== END ==
LOC: M WUC 08:07
PROVIDERS: ATTEND Internal Medicine Gastroenterology
DX: R74.8 Abnormal levels of other serum enzymes (principal)

== ENCOUNTER → 2023-09-10 | Outpatient (CLI) | payer BC ==
[2023-09-10 10:29] LABS: BASO # 0.1 10^3/uL (0.0-0.2); BASO % 1.3 % (0.0-1.0); EOS # 0.1 10^3/uL (0.0-0.5); EOS % 2.1 % (0.0-3.0); HEMATOCRIT 45.5 % (42.0-52.0); HEMOGLOBIN 15.3 g/dl (13.5-17.5); LYMPH # 2.1 10^3/uL (1.5-5.0); LYMPH % 43.5 % (24.0-44.0); MEAN CORPUSCULAR HGB CONC 33.6 g/dl (32.0-36.5); MEAN CORPUSCULAR VOLUME 92.3 fl (80.0-96.0); MONO # 0.5 10^3/uL (0.0-0.8); NEUTROPHILS % 42.7 % (36.0-66.0); PLATELET COUNT, AUTOMATED 233 10^3/uL (150-450); RED BLOOD COUNT 4.93 10^6/uL (4.30-6.10); WHITE BLOOD COUNT 4.7 10^3/uL (4.0-10.0)
[2023-09-10 10:43] LABS: INR 0.98; PROTHROMBIN TIME 12.7 SECONDS (12.5-14.5)
[2023-09-10 11:07] LABS: BILIRUBIN,DIRECT 0.2 MG/DL (<0.4); BILIRUBIN,TOTAL 0.6 MG/DL (0.3-1.2); TOTAL PROTEIN 6.4 G/DL (5.7-8.2)
== END ==
LOC: M WUC 08:10
PROVIDERS: ATTEND Internal Medicine Gastroenterology
DX: R74.8 Abnormal levels of other serum enzymes (principal)

== ENCOUNTER → 2023-09-18 | Outpatient (CLI) | payer BC ==
[~2023-09-18] MED LIST changes: +ACETAMINOPHEN 325 MG TAB As Ordered ONE; +ACETAMINOPHEN TAB 650MG DOSE (2X325MG) PO PRN; +LIDOCAINE 1% MDV 20ML VIAL As Ordered ONE
[2023-09-18 08:15] VITALS: TEMP 97.7
[2023-09-18 11:45] VITALS: BP 156/90; O2SAT 96
== END ==
LOC: M IRPRO 08:04
PROVIDERS: ATTEND Internal Medicine Gastroenterology
DX: R74.8 Abnormal levels of other serum enzymes (principal)

== ENCOUNTER → 2023-10-22 | Outpatient (CLI) | payer BC ==
[~2023-10-22] MED LIST changes: -ACETAMINOPHEN 325 MG TAB As Ordered ONE; -ACETAMINOPHEN TAB 650MG DOSE (2X325MG) PO PRN; -LIDOCAINE 1% MDV 20ML VIAL As Ordered ONE
== END ==
LOC: M RAD 07:08
PROVIDERS: ATTEND Internal Medicine Gastroenterology
DX: R74.8 Abnormal levels of other serum enzymes (principal)

== ENCOUNTER → 2023-12-07 | Outpatient (CLI) | payer BC ==
[2023-12-07 13:27] LABS: CHOLESTEROL RISK RATIO 4.7 (<5); LDL CHOLESTEROL 158.4 MG/DL (<100)
== END ==
LOC: M WUC 08:21
PROVIDERS: ATTEND Internal Medicine Cardiovascular Disease
DX: E78.2 Mixed hyperlipidemia (principal); G45.9 Transient cerebral ischemic attack, unspecified

== ENCOUNTER → 2024-03-06 | Outpatient (CLI) | payer BC ==
[2024-03-06 10:53] LABS: ALBUMIN 4.1 G/DL (3.2-5.2); BILIRUBIN,DIRECT 0.2 MG/DL (<0.4); BILIRUBIN,TOTAL 0.8 MG/DL (0.3-1.2); TOTAL PROTEIN 6.9 G/DL (5.7-8.2)
== END ==
LOC: M WUC 08:06
PROVIDERS: ATTEND Internal Medicine Gastroenterology
DX: R74.8 Abnormal levels of other serum enzymes (principal); R74.01 Elevation of levels of liver transaminase levels

== ENCOUNTER → 2024-07-30 | Outpatient (CLI) | payer BC ==
[2024-07-30 11:15] LABS: ALBUMIN 4.1 G/DL (3.2-5.2); BILIRUBIN,DIRECT 0.1 MG/DL (<0.4); BILIRUBIN,TOTAL 0.6 MG/DL (0.3-1.2)
== END ==
LOC: M PLALAB 07:17
PROVIDERS: ATTEND Internal Medicine Gastroenterology
DX: R74.8 Abnormal levels of other serum enzymes (principal)

== ENCOUNTER → 2024-07-30 | Outpatient (CLI) | payer BC ==
[2024-07-30 11:15] LABS: CHOLESTEROL RISK RATIO 4.44 (<5); LDL CHOLESTEROL 144.8 MG/DL (<100)
== END ==
LOC: M PLALAB 07:19
PROVIDERS: ATTEND Internal Medicine Cardiovascular Disease
DX: E78.2 Mixed hyperlipidemia (principal)

== ENCOUNTER → 2024-11-24 | Outpatient (CLI) | payer BC ==
[2024-11-24 13:15] LABS: ALT/SGPT 29.0 U/L (7.0-40); AST/SGOT 27.0 U/L (<34); CHOLESTEROL LEVEL 147.0 MG/DL (<200); CHOLESTEROL RISK RATIO 2.21 (<5); LDL CHOLESTEROL 62.9 MG/DL (<100); NON-HDL-C 80.7 MG/DL; TRIGLYCERIDES LEVEL 89.0 MG/DL (<150)
[2024-11-24 13:16] LABS: CPK CREATINE PHOSPHOKINASE 142.0 U/L (46-171)
== END ==
LOC: M WUC 08:14
PROVIDERS: ATTEND Internal Medicine Cardiovascular Disease
DX: I25.10 Atherosclerotic heart disease of native coronary artery without angina pectoris (principal); E78.2 Mixed hyperlipidemia